=== PATIENT | male | born 1965 | race Caucasian/White ===

== ENCOUNTER → 2016-11-23 | Outpatient (CLI) | payer OTHER ==
--- NOTE | 2016-11-25 06:04 | SLEEPCENT ---
DATE OF PROCEDURE: 11/23/2016 ORDERED BY: Shy Almaraz INTERPRETATION: Nocturnal polysomnography was performed due to concern for the obstructive sleep apnea syndrome. 8 hours and 33 minutes of data were reviewed. There were 365 minutes of sleep identified. Sleep latency was prolonged at 50 minutes. Rapid eye movement (REM) latency was mildly prolonged at 96 minutes. Sleep architecture showed severe fragmentation prior to intervention. Overall sleep efficiency improved markedly after interventions were made. The patient's sleep efficiency was 73%. EKG showed a sinus rhythm with PVCs. Average heart rate 56 beats per minute. EEG showed normal wave forms for awake and sleep. There were 223 respiratory events identified of 10 seconds in duration or greater for an apnea-hypopnea index of 36.6. The events were associated with oxygen desaturations into the 60s. Having clearly established the presence of obstructive sleep apnea syndrome early in testing, the study was stopped for the application of pressure therapy. The patient was fit with a ResMed air fit F10 small nasal mask, 4 cm of water pressure were applied to the circuit and the lights were extinguished. Throughout the remaining hours of testing, pressure titration was performed to an optimal pressure of 9 cm with which pressure the patient slept through REM without respiratory event or oxygen desaturation. IMPRESSION: Severe obstructive sleep apnea syndrome (G47.33), apnea-hypopnea index 36.6. RECOMMENDATION: Nightly use of pressure therapy 9 cm of water.
== END ==
LOC: M SLEEP 20:00
PROVIDERS: ATTEND Internal Medicine
DX: G47.33 Obstructive sleep apnea (adult) (pediatric) (principal)

== ENCOUNTER 2019-05-24 09:37 | Inpatient (IN) | payer MEDICARE, OTHER ==
[~2019-05-24] VITALS: Ht 177.8 cm; Wt 113.8 kg
[2019-05-24] MEDS ORDERED: CARV25TA PO (10:05)
[2019-05-24] MEDS ORDERED: ENTR1TAB PO (10:05)
[2019-05-24] MEDS ORDERED: FURO20TA2 PO (10:05)
[2019-05-24] MEDS ORDERED: ELIQ5TAB PO (10:05)
[2019-05-24] MEDS ORDERED: SPIR-10 PO (10:05)
[2019-05-24] MEDS ORDERED: OMEP-218 PO (10:05)
[2019-05-24] MEDS ORDERED: METF10004 PO (10:05)
[2019-05-24] MEDS ORDERED: GABA600T4 PO (10:05)
[2019-05-24] MEDS ORDERED: REFR0.5D8 OU (10:05)
[2019-05-24] MEDS ORDERED: ATOR1TAB21 PO (10:05)
[2019-05-24] MEDS ORDERED: INSULANT SC (10:05)
[2019-05-24] MEDS ORDERED: VANCOMYCIN HCL 1,000 MG, VIAL MATE ADAPTER 1 EACH in D5W 250 ML IV ONE (10:15)
[2019-05-24 10:30] LABS: BASO % 0.7 % (0.0-1.0); EOS # 0.1 10^3/uL (0.0-0.5); EOS % 2.3 % (0.0-3.0); HEMATOCRIT 39.5 % (42.0-52.0); HEMOGLOBIN 13.1 g/dl (13.5-17.5); LYMPH # 0.7 10^3/uL (1.5-5.0); LYMPH % 16.4 % (24.0-44.0); MEAN CORPUSCULAR HGB CONC 33.2 g/dl (32.0-36.5); MEAN CORPUSCULAR VOLUME 84.4 fl (80.0-96.0); MONO # 0.5 10^3/uL (0.0-0.8); MONO % 11.6 % (0.0-5.0); NEUTROPHILS % 68.8 % (36.0-66.0); PLATELET COUNT, AUTOMATED 130 10^3/uL (150-450); RED BLOOD COUNT 4.68 10^6/uL (4.30-6.10); WHITE BLOOD COUNT 4.4 10^3/uL (4.0-10.0)
[2019-05-24 10:39] LABS: INR 1.23; PROTHROMBIN TIME 15.2 SECONDS (11.8-14.0)
[2019-05-24 10:53] LABS: ALBUMIN 3.5 GM/DL (3.2-5.2); ALT/SGPT 24 U/L (12-78); BILIRUBIN,DIRECT 0.2 MG/DL (0.0-0.2); BILIRUBIN,TOTAL 0.6 MG/DL (0.2-1.0); BLOOD UREA NITROGEN 15 MG/DL (7-18); C REACTIVE PROTEIN QUANTITATIV 6.09 MG/DL (0.00-0.30); CALCIUM LEVEL 8.7 MG/DL (8.5-10.1); CARBON DIOXIDE LEVEL 23 MEQ/L (21-32); CHLORIDE LEVEL 105 MEQ/L (98-107); CREATININE FOR GFR 0.98 MG/DL (0.70-1.30); GLOMERULAR FILTRATION RATE > 60.0 (>56); GLUCOSE, FASTING 222 MG/DL (70-100); POTASSIUM SERUM 4.3 MEQ/L (3.5-5.1); SODIUM LEVEL 136 MEQ/L (136-145); TOTAL PROTEIN 6.7 GM/DL (6.4-8.2)
--- NOTE | 2019-05-24 11:01 | REP ---
Right lower extremity Duplex Doppler venous ultrasound: Real time compression and duplex Doppler interrogation of the right lower extremity deep venous system is performed. The right common femoral, superficial femoral and popliteal veins are fully compressible with transducer pressure and demonstrate normal spontaneous and phasic flow, without evidence of deep venous thrombosis. Impression: No evidence of deep venous thrombosis of the right lower extremity femoral popliteal venous system. Electronically Signed by Iván Benoit MD 05/24/2019 10:53 A
[2019-05-24 11:06] LABS: ERYTHROCYTE SEDIMENTATION RATE 30 mm/hr (0-20)
--- NOTE | 2019-05-24 11:30 | REP ---
ULTRASOUND RIGHT THIGH: Real-time sonographic evaluation of the right thigh soft tissues performed at an area of pain and redness. No mass is seen. No fluid collection or abscess is seen. IMPRESSION: No evidence of abscess or fluid collection in the region of the pain and redness in the right thigh soft tissues. Electronically Signed by Iván Benoit MD 05/25/2019 10:09 A
[2019-05-24] MEDS ORDERED: DILUENT IV ONE (11:45)
[2019-05-24] MEDS ORDERED: NS IV ONE (11:45)
[2019-05-24] MEDS ORDERED: NS 1,000 ML IV ONE (12:00)
[2019-05-24] MEDS ORDERED: ATOR40TA75 PO (13:00)
[2019-05-24] MEDS ORDERED: METF-791 PO (13:00)
[2019-05-24] MEDS ORDERED: NITR4TASL SL (13:01)
[2019-05-24] MEDS ORDERED: VENTAER INH (13:01)
[2019-05-24] MEDS ORDERED: ACETAMINOPHEN TAB 650MG DOSE (2X325MG) PO PRN (13:30)
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
[2019-05-24 15:40] VITALS: BP 117/59
[2019-05-24] MEDS ORDERED: GLUCOSE 4 GM CHEW TABLET PO PRN (15:45)
[2019-05-24] MEDS ORDERED: GLUCAGON FOR INJ 1 MG VIAL (J1610) SC PRN (15:45)
[2019-05-24] MEDS ORDERED: DEXTROSE 50% 50 ML SYRINGE IV PRN (15:45)
[2019-05-24] MEDS ORDERED: ALBUTEROL 90 MCG/ACT 8GM HFA INHALER INH PRN (15:45)
[2019-05-24] MEDS ORDERED: ISOVUE-370 76% 100ML VIAL (Q9967) As Ordered ONE (16:59)
[2019-05-24] MEDS ORDERED: CEFEPIME HCL 2 GM in D5W MINI-BAG PLUS 50 ML IV SCH (17:00)
[2019-05-24] MEDS: FUROSEMIDE 20 MG TAB PO SCH (17:48)
[2019-05-24] MEDS: HumaLOG INSULIN (NovoLOG) PER UNIT SC SCH (17:49)
--- NOTE | 2019-05-24 17:50 | REPVR ---
EXAM: CT Right Lower Extremity Without Contrast; Lower Leg EXAM DATE/TIME: 05/24/2019 5:22 PM CLINICAL HISTORY: 54 years old, male; Pain; Lower leg; Right; Additional info: R/O ostemyelitis TECHNIQUE: Imaging protocol: CT of the Right lower extremity without contrast was performed. Exam focused on the lower leg. Radiation optimization: All CT scans at this facility use at least one of these dose optimization techniques: automated exposure control; mA and/or kV adjustment per patient size (includes targeted exams where dose is matched to clinical indication); or iterative reconstruction. COMPARISON: US EXTREMITY NON VASCUL LIMITED 05/24/2019 10:43 AM FINDINGS: CT is suboptimal for the evaluation of osteomyelitis. Scarring is present along the anterolateral soft tissues superficial to the proximal tibia and there are cortical defects in the lateral fibular cortex appear sclerotic and remote. There appears to be chronic periosteal reaction along the medial and lateral proximal tibia and there appear to be multiple pin tract sites from prior orthopedic procedure. Hyperostosis is seen involving the proximal tibia diffusely. There is evidence of prior buttress plate fixation in the tibial plateau laterally. Demineralization is seen within the tibial plateau and proximal tibia. No obvious active bone destruction. Chronic deformities of the calcaneus are present, with sclerotic margins and no obvious acute bony resorption. No soft tissue fluid collection. Mild diffuse subcutaneous soft tissue edema is present IMPRESSION: Soft tissue swelling and extensive old post surgical changes of the tibia. No convincing evidence of active bone resorption as all of the cortical changes appear sclerotic with hyperostosis. Consider MRI for a more sensitive evaluation of the osseous structures. Diffuse demineralization, and old prior deformities of the calcaneus Electronically signed by: Toni Benoit On 05/24/2019 17:49:33 PM
[2019-05-24] MEDS: VANCOMYCIN HCL 1,000 MG, VIAL MATE ADAPTER 1 EACH in D5W 250 ML IV SCH (18:46)
[2019-05-24] MEDS: CARVedilol 12.5 MG TAB PO SCH (21:39)
[2019-05-24] MEDS: ENTRESTO 24-26MG TABLET (SACUBITRIL/VALSARTAN) PO SCH (21:39)
[2019-05-24] MEDS: LEVEMIR (INSULIN DETEMIR) 1 UNITS/0.01ML SC SCH (21:39)
[2019-05-24] MEDS ORDERED: PERCOCET 5MG/325MG TAB PO ONE (21:45)
[2019-05-24 22:00] VITALS: BP 96/58
[2019-05-25] MEDS: VANCOMYCIN HCL 1,000 MG, VIAL MATE ADAPTER 1 EACH in D5W 250 ML IV SCH ×3 (01:41→18:42)
[2019-05-25 06:00] VITALS: BP 134/72
[2019-05-25 08:10] LABS: HEMATOCRIT 36.1 % (42.0-52.0); HEMOGLOBIN 11.7 g/dl (13.5-17.5); MEAN CORPUSCULAR HGB CONC 32.4 g/dl (32.0-36.5); MEAN CORPUSCULAR VOLUME 83.4 fl (80.0-96.0); PLATELET COUNT, AUTOMATED 134 10^3/uL (150-450); RED BLOOD COUNT 4.33 10^6/uL (4.30-6.10); WHITE BLOOD COUNT 4.1 10^3/uL (4.0-10.0)
[2019-05-25 08:15] LABS: BLOOD UREA NITROGEN 14 MG/DL (7-18); CALCIUM LEVEL 8.5 MG/DL (8.5-10.1); CARBON DIOXIDE LEVEL 25 MEQ/L (21-32); CHLORIDE LEVEL 108 MEQ/L (98-107); GLOMERULAR FILTRATION RATE > 60.0 (>56); GLUCOSE, FASTING 154 MG/DL (70-100); SODIUM LEVEL 139 MEQ/L (136-145)
[2019-05-25] MEDS: HumaLOG INSULIN (NovoLOG) PER UNIT SC SCH ×3 (09:00→18:41)
[2019-05-25] MEDS: GABAPENTIN 300 MG CAP PO SCH (09:00)
[2019-05-25] MEDS: ENTRESTO 24-26MG TABLET (SACUBITRIL/VALSARTAN) PO SCH ×2 (09:00→20:26)
[2019-05-25] MEDS: ATORVASTATIN 20 MG TAB PO SCH (09:00)
[2019-05-25] MEDS: FUROSEMIDE 20 MG TAB PO SCH ×2 (09:01→17:16)
[2019-05-25] MEDS: SPIRONOLACTONE 25 MG TAB PO SCH (09:01)
[2019-05-25] MEDS: CARVedilol 12.5 MG TAB PO SCH ×2 (09:02→20:26)
[2019-05-25 09:29] LABS: VANCOMYCIN RANDOM 12.3 UG/ML
--- NOTE | 2019-05-25 12:24 | PHACANCOPD ---
PHARMACY VANCOMYCIN DOSING Pt Demographics Demographics Patient Age:54 , Weight:115.000 , Gender: male Adjusted Body Weight Date: 05/25/19, Adjusted Body Weight: [115] Kg Events Past 24 Hours Events Past 24 Hours: NO: Dialysis, Diuretic Therapy, Change in CrCl, Fever, Elevation in WBC, Pending Diagnostics, Pending Procedures, Other Vancomycin Vancomycin indication: CELLULITIS/OSTEO Vancomycin Target Ranges: 15-20 mcg/ml Vancomycin Load Y/N: No Load Dose Date Time Vancomycin Load Dose: Date: Time: Vancomycin Dose Date: 05/25/19. Current Vancomycin Dose: [1G Q8H @18] Intermittent Dosing?: No Labs Labs Item Value Date Time Creatinine 0.98 MG/DL 05/24/19 1006 Creatinine 0.80 MG/DL 05/25/19 0651 Random Vancomycin Level 12.3 UG/ML 05/25/19 0651 Micro Microbiology 05/24/19 Blood Culture - Preliminary, Resulted No growth after 24 hours . All specim... 05/24/19 Blood Culture - Preliminary, Resulted No growth after 24 hours . All specim... Creatinine Clearance Date:05/25/19. Creatinine Clearance: [106.46]. Assessment and Plan Maintaining Current Dose?: Yes Reason for dose change: Trough too low Pharmacist Note Pharmacist Note Date: 05/25/19. Pharmacist note: The patient is being treated for cellulitis/ osteomyelitis and is currently on antibiotic therapy with cefepime 2g Q12H as well as Vancomycin 1G Q8H. This is the first time this patient has been treated with Vancomycin at our facility. He was administered his first dose in the ED @ 1100 on 05/24. At the time his creatinine was 0.98 and creatinine clearance was 86.905. The random trough that was taken on 05/25 at 0651 came back with 12.3 which is lower than our therapeutic goal of 15-20. Because the patient wasn't loaded in the ED we are adding in a one time dose of 750mg @ 1300 on 05/25 in addition to the 10am dose that was given this morning. His labs as of this morning are: SCr= 0.8 and XnPs=425.46. We will continue to monitor and adjust dosing as needed. RAKEL WATT, PHARMACY May 25, 2019 12:24
[2019-05-25 14:00] VITALS: BP 126/61
[2019-05-25] MEDS ORDERED: VANCOMYCIN HCL 750 MG, VIAL MATE ADAPTER 1 EACH in D5W 250 ML IV ONE (14:00)
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
--- NOTE | 2019-05-25 18:54 | IPNPDOC ---
Date Seen The patient was seen on 05/25/19. Progress Note SUBJECTIVE: Patient reported feeling better than yesterday. Leg is less red and pain had also improved. Noted this afternoon to have 4 beats of Vtach that had resolved and asymptomatic. OBJECTIVE PHYSICAL EXAMINATION: VITAL SIGNS: Please see below. General: No acute distress, Alert Eyes: Normal sclera, EOMI, AWA HENT: Atraumatic, neck supple, moist mucous membranes Cardiovascular: Normal rate, normal rhythm. No murmurs appreciated. Pulmonary: Clear to auscultation b/l, no wheezing GI: Soft, nontender, nondistended Skin: RLE anterolateral scar. Diffuse circumferential erythema and swelling from foot up to knee, then some mild erythema anterior thigh up to groin. Neuro: CN grossly intact. No focal deficits. Strengths equal b/l. Psych: oriented x 3 LABORATORY DATA, IMAGING STUDIES, MICROBIOLOGY: Please see below. ASSESSMENT AND PLAN: 1. RLE cellulitis - So far afebrile with no leukocytosis. - However, did have history of recurrent evidence of osteomyelitis in the past requiring prolong IV course of Abx x2 with elevated ESR and CRP. - CT of LE does not show evidence consistent with Osteomyelitis, likely just cellulitis. MRI cannot be performed due to presence of defibrillator. - ID consulted. c/w Vancomycin for now. f/u blood cultures. - Obtain MRSA screen and try to obtain records from [facility]. 2. NICM - Reported EF 10%, had been evaluated by heart transplant x2. - Follows with cardiology at [facility]. - Resume home meds. On Eliquis. 3. DM - Lantus 10 units qHS at home, resume, hold metformin. - ISS with meals. 4. RAFAEL - Resume 5. Nonsustained Vtach - Resolved. Asymptomatic. - Monitor and replete electrolytes. DVT ppx: On Eliquis VS, I&O, 24H, Fishbone Vital Signs/I&O Vital Signs Date Time Temp Pulse Resp B/P (MAP) Pulse Ox O2 Delivery O2 Flow Rate FiO2 05/25/19 14:00 97.6 73 18 126/61 (82) 97 05/24/19 15:26 Room Air I&O- Last 24 Hours up to 6 AM 05/25/19 06:00 Intake Total 2470 ml Output Total 950 ml Balance 1520 ml Laboratory Data 24H LABS Laboratory Tests 2 05/25/19 06:51: Nucleated Red Blood Cells % (auto) 0.0, Anion Gap 6L, Glomerular Filtration Rate > 60.0, Blood Urea Nitrogen 14, Creatinine 0.80, Sodium Level 139, Potassium Level 4.0, Chloride Level 108H, Carbon Dioxide Level 25, Calcium Level 8.5, Random Vancomycin Level 12.3 05/25/19 12:32: Bedside Glucose (Misc Panel) 209H 05/25/19 17:08: Bedside Glucose (Misc Panel) 216H 05/25/19 17:36: CBC/BMP Laboratory Tests 05/25/19 06:51 Red Blood Count 4.33, Mean Corpuscular Volume 83.4, Mean Corpuscular Hemoglobin 27.0, Mean Corpuscular Hemoglobin Concent 32.4, Red Cell Distribution Width 14.7 H, Calcium Level 8.5 Microbiology Microbiology 05/24/19 Blood Culture - Preliminary, Resulted No growth after 24 hours . All specim... 05/24/19 Blood Culture - Preliminary, Resulted No growth after 24 hours . All specim... RODRIGUE VALLECILLO MD May 25, 2019 18:54
[2019-05-25] MEDS: PERCOCET 5MG/325MG TAB PO PRN (19:40)
[2019-05-25] MEDS: LEVEMIR (INSULIN DETEMIR) 1 UNITS/0.01ML SC SCH (20:26)
[2019-05-25] MEDS: APIXABAN 5 MG TAB (ELIQUIS) PO SCH (20:26)
[2019-05-25 22:00] VITALS: BP 132/61
[2019-05-26] MEDS: VANCOMYCIN HCL 1,000 MG, VIAL MATE ADAPTER 1 EACH in D5W 250 ML IV SCH ×2 (02:16→09:53)
[2019-05-26 06:00] VITALS: BP 128/59
[2019-05-26 06:07] LABS: HEMATOCRIT 37.4 % (42.0-52.0); HEMOGLOBIN 12.1 g/dl (13.5-17.5); MEAN CORPUSCULAR HGB CONC 32.4 g/dl (32.0-36.5); MEAN CORPUSCULAR VOLUME 83.5 fl (80.0-96.0); PLATELET COUNT, AUTOMATED 140 10^3/uL (150-450); RED BLOOD COUNT 4.48 10^6/uL (4.30-6.10); WHITE BLOOD COUNT 4.6 10^3/uL (4.0-10.0)
[2019-05-26 06:34] LABS: BLOOD UREA NITROGEN 18 MG/DL (7-18); CALCIUM LEVEL 8.5 MG/DL (8.5-10.1); CARBON DIOXIDE LEVEL 27 MEQ/L (21-32); CHLORIDE LEVEL 105 MEQ/L (98-107); CREATININE FOR GFR 0.78 MG/DL (0.70-1.30); GLOMERULAR FILTRATION RATE > 60.0 (>56); GLUCOSE, FASTING 162 MG/DL (70-100); POTASSIUM SERUM 3.9 MEQ/L (3.5-5.1); SODIUM LEVEL 139 MEQ/L (136-145)
[2019-05-26] MEDS: ENTRESTO 24-26MG TABLET (SACUBITRIL/VALSARTAN) PO SCH ×2 (08:13→21:38)
[2019-05-26] MEDS: HumaLOG INSULIN (NovoLOG) PER UNIT SC SCH ×3 (08:13→18:05)
[2019-05-26] MEDS: ATORVASTATIN 20 MG TAB PO SCH (08:14)
[2019-05-26] MEDS: FUROSEMIDE 20 MG TAB PO SCH ×2 (08:14→17:27)
[2019-05-26] MEDS: SPIRONOLACTONE 25 MG TAB PO SCH (08:14)
[2019-05-26] MEDS: GABAPENTIN 300 MG CAP PO SCH (08:15)
[2019-05-26] MEDS: APIXABAN 5 MG TAB (ELIQUIS) PO SCH ×2 (08:15→21:39)
[2019-05-26] MEDS: CARVedilol 12.5 MG TAB PO SCH ×2 (08:19→21:39)
[2019-05-26 14:00] VITALS: BP 138/67
--- NOTE | 2019-05-26 18:42 | IPN ---
DATE: 05/26/2019 Mr. López feels better. He states his pain in his ankle has improved. There is some redness extending all the way to the mid thigh. He also has redness in his groin area. He has a history of yeast infection in the groin. He has had no fever or chills. We did receive his records from [facility] and the cultures from his previous incision and drainage surgery that was positive for Staphylococcus epidermidis methicillin-sensitive and the patient was treated with IV cefazolin. He still has lower extremity edema. No fever or chills. No nausea, vomiting or diarrhea. He has lost his peripheral IV and was wondering whether he could be switched to oral antibiotics. LABORATORY DATA: White count is 4.6, hemoglobin 12.1, hematocrit 37.4, platelets 140. ESR 30. Sodium 139, potassium 3.9, chloride 105, bicarbonate 27, BUN 18, creatinine 0.78, glucose 162, calcium 8.5, CRP on admission was 6.09. Vancomycin trough was 15.2. MRSA PCR was negative. Blood cultures were negative. Lower extremity CT showed no evidence of osteomyelitis. No abscess. Soft tissue swelling and extensive postsurgical changes. PHYSICAL EXAMINATION: HEART: Normal S1, S2. No murmurs, rubs or gallops. LUNGS: Clear. No wheezes, rales or rhonchi. ABDOMEN: Obese, soft, nontender. Right groin erythematous, moist with redness. No redness in the left groin. There is also redness in the medial thigh with some warmth. Decreased erythema and redness of the lower leg. He has +1 ankle edema. IMPRESSION: 1. Right lower extremity cellulitis in a patient with previous history of chronic osteomyelitis and multiple surgeries to the right leg with chronic lymphedema. The patient understands that he is at recurrent risk of cellulitis due to multiple surgeries. 2. History of calcaneus osteomyelitis of the right foot from a decubitus ulcer. No evidence of recurrence. They are completely healed. 3. Candidiasis of the groin. 4. No IV access. PLAN: Discontinue IV vancomycin. Switch to linezolid 600 mg by mouth twice a day, Mycostatin powder to groin bilaterally. Repeat complete blood count (CBC), C-reactive protein (CRP) in the morning and if clinically improved, the patient can be discharged home with 10 days of linezolid to followup in my office in 7-10 days.
--- NOTE | 2019-05-26 19:32 | IPNPDOC ---
Date Seen The patient was seen on 05/26/19. Progress Note SUBJECTIVE: Patient reported feeling fine. Reportedly had some brief episode of blurry vision when he stood up today that had resolved. Otherwise no other acute issues reported. OBJECTIVE PHYSICAL EXAMINATION: VITAL SIGNS: Please see below. General: No acute distress, Alert Eyes: Normal sclera, EOMI, AWA HENT: Atraumatic, neck supple, moist mucous membranes Cardiovascular: Normal rate, normal rhythm. No murmurs appreciated. Pulmonary: Clear to auscultation b/l, no wheezing GI: Soft, nontender, nondistended Skin: RLE anterolateral scar. Diffuse circumferential erythema and swelling from foot up to knee, also some mild erythema anterior thigh up to groin. Neuro: CN grossly intact. No focal deficits. Strengths equal b/l. Psych: oriented x 3 LABORATORY DATA, IMAGING STUDIES, MICROBIOLOGY: Please see below. ASSESSMENT AND PLAN: 1. RLE cellulitis - So far afebrile with no leukocytosis. - Have history of recurrent evidence of osteomyelitis in the past requiring prolong IV course of Abx x2 with elevated ESR and CRP. - CT of LE does not show evidence consistent with Osteomyelitis, likely just cellulitis. MRI cannot be performed due to presence of defibrillator. - ID following. patient started on Zyvox and vancomycin d/c. Blood cultures negative to date. 2. NICM - Reported EF 10%, had been evaluated by heart transplant x2. - Follows with cardiology at [facility]. - Resume home meds. On Eliquis. 3. DM - Lantus 10 units qHS at home, resume, hold metformin. - ISS with meals. 4. RAFAEL - Resume 5. Nonsustained Vtach - Resolved. Asymptomatic. - Monitor and replete electrolytes. DVT ppx: On Eliquis VS, I&O, 24H, Fishbone Vital Signs/I&O Vital Signs Date Time Temp Pulse Resp B/P (MAP) Pulse Ox O2 Delivery O2 Flow Rate FiO2 05/26/19 14:00 98.1 64 18 138/67 (90) 96 05/24/19 15:26 Room Air I&O- Last 24 Hours up to 6 AM 05/26/19 06:00 Intake Total 2305 ml Output Total 1725 ml Balance 580 ml Laboratory Data 24H LABS Laboratory Tests 2 05/25/19 20:35: Bedside Glucose (Misc Panel) 187H 9/19/19 05:21: Nucleated Red Blood Cells % (auto) 0.0, Anion Gap 7L, Glomerular Filtration Rate > 60.0, Blood Urea Nitrogen 18, Creatinine 0.78, Sodium Level 139, Potassium Level 3.9, Chloride Level 105, Carbon Dioxide Level 27, Calcium Level 8.5 05/26/19 11:54: Bedside Glucose (Misc Panel) 238H 05/26/19 14:49: Bedside Glucose (Misc Panel) 217H 05/26/19 17:09: Bedside Glucose (Misc Panel) 140H 05/26/19 17:19: Vancomycin Level Trough 15.2 CBC/BMP Laboratory Tests 05/26/19 05:21 Red Blood Count 4.48, Mean Corpuscular Volume 83.5, Mean Corpuscular Hemoglobin 27.0, Mean Corpuscular Hemoglobin Concent 32.4, Red Cell Distribution Width 14.7 H, Calcium Level 8.5 Microbiology Microbiology 05/24/19 Blood Culture - Preliminary, Resulted No Growth after 48 hours. All Specime... 05/24/19 Blood Culture - Preliminary, Resulted No Growth after 48 hours. All Specime... RODRIGUE VALLECILLO MD May 26, 2019 19:32
[2019-05-26] MEDS: LINEZOLID 600MG TABLET (ZYVOX) PO SCH (21:38)
[2019-05-26 21:39] VITALS: BP 138/70
[2019-05-26] MEDS: NYSTATIN 100,000 UNITS/GM TOPICAL PWD 15 GM TOP SCH (21:39)
[2019-05-26] MEDS: LEVEMIR (INSULIN DETEMIR) 1 UNITS/0.01ML SC SCH (21:40)
[2019-05-26] MEDS: PERCOCET 5MG/325MG TAB PO PRN (21:40)
[2019-05-26 22:00] VITALS: BP 138/70
[2019-05-27 06:00] VITALS: BP 120/70
[2019-05-27 06:24] LABS: HEMATOCRIT 40.4 % (42.0-52.0); MEAN CORPUSCULAR HEMOGLOBIN 27.3 pg (27.0-33.0); MEAN CORPUSCULAR HGB CONC 32.2 g/dl (32.0-36.5); MEAN CORPUSCULAR VOLUME 84.9 fl (80.0-96.0); PLATELET COUNT, AUTOMATED 152 10^3/uL (150-450); RED BLOOD COUNT 4.76 10^6/uL (4.30-6.10); WHITE BLOOD COUNT 6.6 10^3/uL (4.0-10.0)
[2019-05-27 06:46] LABS: BLOOD UREA NITROGEN 14 MG/DL (7-18); CALCIUM LEVEL 8.4 MG/DL (8.5-10.1); CARBON DIOXIDE LEVEL 27 MEQ/L (21-32); CHLORIDE LEVEL 105 MEQ/L (98-107); CREATININE FOR GFR 0.78 MG/DL (0.70-1.30); GLOMERULAR FILTRATION RATE > 60.0 (>56); GLUCOSE, FASTING 160 MG/DL (70-100); POTASSIUM SERUM 4.5 MEQ/L (3.5-5.1); SODIUM LEVEL 138 MEQ/L (136-145)
[2019-05-27] MEDS: HumaLOG INSULIN (NovoLOG) PER UNIT SC SCH (07:30)
[2019-05-27] MEDS: APIXABAN 5 MG TAB (ELIQUIS) PO SCH (10:12)
[2019-05-27] MEDS: FUROSEMIDE 20 MG TAB PO SCH (10:12)
[2019-05-27] MEDS: ENTRESTO 24-26MG TABLET (SACUBITRIL/VALSARTAN) PO SCH (10:12)
[2019-05-27] MEDS: ATORVASTATIN 20 MG TAB PO SCH (10:12)
[2019-05-27] MEDS: SPIRONOLACTONE 25 MG TAB PO SCH (10:12)
[2019-05-27] MEDS: GABAPENTIN 300 MG CAP PO SCH (10:12)
[2019-05-27] MEDS: LINEZOLID 600MG TABLET (ZYVOX) PO SCH (10:12)
[2019-05-27] MEDS: CARVedilol 12.5 MG TAB PO SCH (10:13)
[2019-05-27] MEDS: NYSTATIN 100,000 UNITS/GM TOPICAL PWD 15 GM TOP SCH (10:13)
[2019-05-27] MEDS ORDERED: LINE1TAB6 PO (10:22)
[2019-05-27] MEDS ORDERED: NYAM10003 TOP (10:27)
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
== END 2019-05-27 11:44 | disposition home or self-care (01) | DRG 603 ==
LOC: M ED 09:37 → M ED INP 13:26 → M MSPAV 15:36
PROVIDERS: ADMIT Student in an Organized Health Care Education/Training Program; ATTEND Student in an Organized Health Care Education/Training Program
DX: L03.115 Cellulitis of right lower limb (principal); I47.2 Ventricular tachycardia; I42.6 Alcoholic cardiomyopathy; B37.89 Other sites of candidiasis; E11.9 Type 2 diabetes mellitus without complications; G47.33 Obstructive sleep apnea (adult) (pediatric); Z95.0 Presence of cardiac pacemaker; Z79.899 Other long term (current) drug therapy; Z91.013 Allergy to seafood; Z79.4 Long term (current) use of insulin; Z87.891 Personal history of nicotine dependence; Z95.2 Presence of prosthetic heart valve

== ENCOUNTER → 2020-08-01 | Outpatient (CLI) | payer OTHER ==
[~2020-08-01] MED LIST: ATOR1TAB21 PO; ATOR40TA75 PO; CARV25TA PO; ELIQ5TAB PO; ENTR1TAB PO; FURO20TA2 PO; GABA600T4 PO; INSULANT SC; LINE1TAB6 PO; METF-838 PO; METF10004 PO; NITR4TASL SL; NYAM10003 TOP; OMEP-218 PO; REFR0.5D8 OU; SPIR-10 PO; VENTAER INH
--- NOTE | 2020-08-02 10:01 | REP ---
INDICATION: N20.0 CALCULUS KIDNEY W/ HYDRONEPHROSIS STONE PROTOCOL COMPARISON: None TECHNIQUE: Axial noncontrast images from the lung bases to the pubic symphysis with coronal and sagittal reformations. This CT examination was performed using the following dose reduction techniques: Automated exposure control, adjustment of mA and/or kv according to the patient's size, and use of iterative reconstruction technique. FINDINGS: The kidneys demonstrate mild perinephric stranding without hydronephrosis and without nephrolithiasis. However, there is a 4 mm calculus in the distal right ureter (images 120-122) possibly causing partial/intermittent obstruction and intermittent renal colic. Liver, spleen, pancreas, bilateral adrenal glands are normal. Cholelithiasis noted without acute cholecystitis. The enteric system is unremarkable and without obstruction or acute inflammatory process. Pelvis demonstrates normal bladder and age-appropriate prostate/seminal vesicles. Small fat containing left inguinal hernia noted. No ascites. No free air. No adenopathy. No focal inflammatory stranding. Abdominal aorta without aneurysm. Musculoskeletal structures demonstrate degenerative changes most notably involving the right hip as well as old healed bilateral rib fractures. IMPRESSION: 1. 4 mm calculus in the distal right ureter without associated hydronephrosis. Remainder of the urinary tract system is grossly unremarkable and without further acute findings. 2. Cholelithiasis without acute cholecystitis. 3. Small fat containing left inguinal hernia. 4. Old healed bilateral rib fractures and significant chronic appearing degenerative changes involving the right hip. <Electronically signed by Nestor Fragoso > 08/02/20 [id number]
== END ==
LOC: M RAD 17:06
PROVIDERS: ATTEND Family Medicine
DX: N20.0 Calculus of kidney (principal); K44.9 Diaphragmatic hernia without obstruction or gangrene; I42.9 Cardiomyopathy, unspecified; L03.115 Cellulitis of right lower limb; E66.9 Obesity, unspecified; I10 Essential (primary) hypertension; M77.12 Lateral epicondylitis, left elbow; I44.7 Left bundle-branch block, unspecified; Z79.01 Long term (current) use of anticoagulants; M54.5 Low back pain; R76.11 Nonspecific reaction to tuberculin skin test without active tuberculosis; Z51.81 Encounter for therapeutic drug level monitoring; Z87.81 Personal history of (healed) traumatic fracture

== ENCOUNTER → 2020-09-21 | Outpatient (CLI) | payer OTHER ==
--- NOTE | 2020-09-23 09:24 | REP ---
INDICATION: ABDOMEN AND PELVIC PAIN COMPARISON: 08/01/2020 TECHNIQUE: Axial noncontrast images from the lung bases to the pubic symphysis with coronal and sagittal reformations. This CT examination was performed using the following dose reduction techniques: Automated exposure control, adjustment of mA and/or kv according to the patient's size, and use of iterative reconstruction technique. FINDINGS: Lung bases are clear. Visualized heart and pericardium normal. Liver, spleen, pancreas, bilateral adrenal glands and left kidney are normal. Right kidney appears normal although there is a 4.5 mm distal ureteral calculus approaching the ureterovesical junction (series 201; images 116-118). Cholelithiasis noted without acute cholecystitis. The enteric system is unremarkable and without obstruction or acute inflammatory process. Scattered sigmoid diverticula noted without acute diverticulitis. Pelvis demonstrates normal bladder and age-appropriate uterus/adnexa. Stable small fat containing left inguinal hernia. No ascites. No free air. No adenopathy. No focal inflammatory stranding. Abdominal aorta without aneurysm. Musculoskeletal structures are intact and without acute osseous abnormality. IMPRESSION: 1. A 4.5 mm possibly partially obstructing calculus in the distal right ureter unchanged from prior examination. 2. Cholelithiasis. <Electronically signed by Nestor Fragoso > 09/23/20 0926
== END ==
LOC: M RAD 13:10
PROVIDERS: ATTEND Clinical Nurse Specialist Family Health
DX: N20.0 Calculus of kidney (principal); K80.20 Calculus of gallbladder without cholecystitis without obstruction

== ENCOUNTER → 2020-11-30 | Outpatient (CLI) | payer OTHER, MEDICARE ==
[~2020-11-30] MED LIST changes: +FLOM0.4C39 PO
== END ==
LOC: M LABSMTC 09:39
PROVIDERS: ATTEND Anesthesiology
DX: Z01.812 Encounter for preprocedural laboratory examination (principal); Z20.822 Contact with and (suspected) exposure to COVID-19

== ENCOUNTER 2020-12-05 10:06 | Day surgery (SDC) | payer OTHER ==
[~2020-12-05] VITALS: Ht 177.8 cm; Wt 121.6 kg
[~2020-12-05 10:06] MED LIST changes: +LR 1,000 ML IV ONE; +ceFAZolin SOD 2 GM in IV 1 EA IV ONE
[2020-12-05] MEDS ORDERED: ACETAMINOPHEN 1000MG 100ML IV BTL (OFIRMEV) (J0131 PER 10MG) As Ordered ONE (10:31)
[2020-12-05] MEDS ORDERED: LIDOCAINE 2% 100MG/5ML SDV (FOR ANES.) As Ordered ONE (10:31)
[2020-12-05] MEDS ORDERED: MIDAZOLAM INJ 2MG/2ML VIAL (J2250 PER 1MG) As Ordered ONE (10:31)
[2020-12-05] MEDS ORDERED: ONDANSETRON 4MG/2ML VIAL As Ordered ONE (10:31)
[2020-12-05] MEDS ORDERED: dexameTHASONE 4 MG/ML 1ML VIAL (J1100 PER 1MG) As Ordered ONE (10:31)
[2020-12-05] MEDS ORDERED: fentaNYL 100 MCG/2 ML INJECTION (J3010) As Ordered ONE (10:31)
[2020-12-05] MEDS ORDERED: propofoL 200 MG/20 ML VIAL As Ordered ONE (10:31)
[2020-12-05] MEDS ORDERED: CONRAY-60 60% 50ML VIAL (Q9961) As Ordered ONE (10:38)
--- NOTE | 2020-12-05 13:04 | REP ---
INDICATION: RIGHT STENT PLACEMENT. COMPARISON: None. TECHNIQUE: Two last told images from C-arm fluoroscopy provided to Dr. Kincaid of the urology division FINDINGS: Both images show double pigtail stent. Proximal coil in an upper pole calyx and the distal coil in the bladder. Contrast seen to drain from the collecting system on the 2nd image. IMPRESSION: Placement right double pigtail internal ureteral stent. Fluoroscopy time 7 seconds. <Electronically signed by Rick Whitten > 12/05/20 1300
[2020-12-05] MEDS ORDERED: METOCLOPRAMIDE INJ 10MG/2ML VIAL (J2765 PER 1) IV PRN (13:05)
[2020-12-05] MEDS ORDERED: ONDANSETRON 4MG/2ML VIAL IV PRN (13:05)
[2020-12-05] MEDS ORDERED: LR 1,000 ML IV SCH (13:05)
[2020-12-05] MEDS ORDERED: fentaNYL 100 MCG/2 ML INJECTION (J3010) IV PRN (13:05)
[2020-12-05] MEDS ORDERED: oxyCODONE 5MG TAB PO PRN (13:05)
[2020-12-05] MEDS ORDERED: PERCOCET 5MG/325MG TAB PO PRN (13:10)
--- NOTE | 2020-12-05 13:52 | RO ---
OPERATIVE NOTE DATE OF OPERATION: 12/05/2020 PREOPERATIVE DIAGNOSIS: Right ureteral stone. POSTOPERATIVE DIAGNOSIS: Right ureteral stone. PROCEDURE: Cystoscopy, right ureteroscopy with laser lithotripsy and basket extraction of stone, right retrograde pyelogram with intraop interpretation of images, right ureteral stent placement. SURGEON: Lorenzo Kincaid MD REGULATORY COMPLIANCE COORDINATOR: None. ANESTHESIA: General. OPERATIVE INDICATIONS: This is a 55-year-old male who was found to have an obstructing 5 mm distal right ureteral stone. He is brought to the operating room today for treatment. DESCRIPTION OF PROCEDURE: The patient was brought to the operating room and general anesthesia was induced. Prophylactic antibiotics were infused. He was placed in dorsal lithotomy position and prepped and draped in usual sterile fashion. Rigid cystoscope inserted in urethral meatus and advanced into bladder. Guidewire was advanced up the right collecting system. I went up the right collecting system with a short semi-rigid ureteroscope and in the distal ureter a 5 mm stone was seen. I tried to basket the stone and remove it but it was too big. I therefore utilized a 272 micron laser fiber to fragment stone into smaller pieces. All the fragments were then removed using the basket. I then examined the more proximal ureter and no additional stones were seen. A retrograde pyelogram was performed and was notable for moderate to severe right hydroureteronephrosis with no extravasation. I then withdrew the ureteroscope along with the access sheath and no additional stones were seen. I then utilized a guidewire to advance a 6-Serbian x 22-32 cm JJ ureteral stent up the right collecting system. The wire was removed and there were adequate curls of the stent in right renal pelvis and the bladder. The bladder was emptied of all fluids and this marked the conclusion of the procedure. The patient was taken out of the dorsal lithotomy position, awakened from anesthesia and transferred to recovery room in stable condition. ESTIMATED BLOOD LOSS: 5 mL. COMPLICATIONS: None. SPECIMEN: Kidney stone fragments. PLAN: The patient will follow up in urology clinic in a few weeks for stent removal. [facility]USLashell
[2020-12-05 14:10] VITALS: BP 124/59
[2020-12-11 21:07] LABS: Ca Ox Monohydrate 100 % (.); Size 4x3 mm (.)
== END 2020-12-05 14:45 | disposition home or self-care (01) ==
LOC: M SDC 10:06
PROVIDERS: ATTEND Urology
DX: N20.1 Calculus of ureter (principal); I48.91 Unspecified atrial fibrillation; I10 Essential (primary) hypertension; E78.5 Hyperlipidemia, unspecified; Z95.810 Presence of automatic (implantable) cardiac defibrillator; E10.9 Type 1 diabetes mellitus without complications; Z91.013 Allergy to seafood; G47.33 Obstructive sleep apnea (adult) (pediatric); Z79.01 Long term (current) use of anticoagulants; Z79.84 Long term (current) use of oral hypoglycemic drugs; Z79.4 Long term (current) use of insulin; Z79.899 Other long term (current) drug therapy
CPT/HCPCS: 52356; 74420; 82365; 88300; C1769; C1894; C2617; J0131; J0690; J1100; J2250; J2405; J3010; Q9961